=== PATIENT | female | born 1995 | race Caucasian/White ===

== ENCOUNTER 2017-05-05 23:00 | Emergency (ER) | payer OTHER ==
[2017-05-05] MEDS: IPRATROPIUM (NEB) 0.5 MG/2.5 ML AMP NEB (23:36)
[2017-05-05] MEDS: ALBUTEROL 0.083% (NEB) 2.5 MG/3 ML AMP NEB (23:36)
[2017-05-05] MEDS: traMADol 50 MG TAB PO (23:36)
== END 2017-05-06 01:55 | disposition home or self-care (01) ==
LOC: FTE 05-06 01:55
DX: J20.9 Acute bronchitis, unspecified (principal); M25.561 Pain in right knee
CPT/HCPCS: 29505; 71045; 73562; 94664; 99284-25